=== PATIENT | male | born 1990 | race Caucasian/White ===

== ENCOUNTER 2019-06-12 10:08 | Emergency (ER) | payer OTHER ==
[~2019-06-12] VITALS: Ht 180.3 cm; Wt 85.4 kg
[2019-06-12 10:09] VITALS: BP 136/72
[2019-06-12] MEDS ORDERED: NAPROXEN 250 MG TAB PO ONE (10:45)
[2019-06-12] MEDS ORDERED: BACTRIM 160MG/800MG DS TAB PO ONE (10:45)
[2019-06-12] MEDS ORDERED: BACT800T5 PO (10:47)
[2019-06-12] MEDS ORDERED: NAPR-837 PO (10:47)
== END 2019-06-12 11:15 | disposition home or self-care (01) ==
LOC: M ED 10:08
DX: L08.9 Local infection of the skin and subcutaneous tissue, unspecified (principal); F17.210 Nicotine dependence, cigarettes, uncomplicated

== ENCOUNTER 2019-06-15 08:55 | Emergency (ER) | payer OTHER ==
[~2019-06-15] VITALS: Ht 177.8 cm; Wt 86.1 kg
[2019-06-15 08:55] VITALS: BP 133/73
[~2019-06-15 08:55] MED LIST: BACT800T5 PO; NAPR-837 PO
== END 2019-06-15 09:38 | disposition home or self-care (01) ==
LOC: M ED 08:55
DX: L02.411 Cutaneous abscess of right axilla (principal); F17.210 Nicotine dependence, cigarettes, uncomplicated